=== PATIENT | female | born 1955 | race Two or more races ===

== ENCOUNTER 2017-06-27 08:01 | Day surgery (SDC) | payer MEDICAID ==
[2017-06-27] MEDS ORDERED: FAMOTIDINE 20 MG/NACL 50 ML IV ONE (08:03)
[2017-06-27] MEDS ORDERED: ASPIRIN EC 325 MG TAB PO ONE (08:03)
[2017-06-27] MEDS ORDERED: methylPREDNISolone SOD SUCC 125 MG/2 ML VIAL IVP ONE (08:03)
[2017-06-27] MEDS ORDERED: NS 1,000 ML IV ONE (08:03)
[2017-06-27] MEDS ORDERED: DIAZEPAM 5 MG TAB PO ONE (08:03)
[2017-06-27] MEDS ORDERED: FAMOTIDINE 20 MG/NACL/50 ML BAG IV ONE (08:35)
[2017-06-27] MEDS ORDERED: methylPREDNISolone SOD SUCC 125 MG/2 ML VIAL ONE (08:35)
[2017-06-27] MEDS ORDERED: CLOPIDOGREL BISULFATE 75 MG TAB ONE (08:35)
[2017-06-27 08:54] LABS: % IMMATURE GRANULYOCYTES 0.2 % (0.0-1.1); ABSOLUTE IMMATURE GRANULOCYTES 0.01 10^3/uL (0.00-0.10); ADD DIFF? NO; ADD MORPH? NO; ADD SCAN? NO; ATYPICAL LYMPHOCYTE FLAG 10 (0-99); FRAGMENT RBC FLAG 0 (0-99); HEMATOCRIT 42.1 % (38.0-47.0); LEFT SHIFT FLG 0 (0-99); LIPEMIA HEMOLYSIS FLAG 80 (0-99); MEAN CELL HEMOGLOBIN 30.4 pg (27.9-34.1); MEAN CELL HEMOGLOBIN CONCENTR. 33.3 g/dL (32.4-36.7); MEAN CELL VOLUME 91.3 fL (81.5-99.8); MEAN PLATELET VOLUME 10.2 fL (8.7-11.7); PLATELET CLUMPS FLAG 0 (0-99); PLATELET COUNT 176 10^3/uL (150-400); RED BLOOD CELL COUNT 4.61 10^6/uL (4.18-5.33); RED CELL DISTRIBUTION WIDTH 13.7 % (11.5-15.2)
[2017-06-27] MEDS ORDERED: fentaNYL 100 MCG/2 ML INJ ONE (08:58)
[2017-06-27] MEDS ORDERED: LIDOCAINE 1% 300 MG/30 ML SDV ONE (08:58)
--- NOTE | 2017-06-27 08:58 | CPEKG ---
Heart Rate: 67 RR Interval: 896 P-R Interval: 172 QRSD Interval: 78 QT Interval: 420 QTC Interval: 444 P Dupont: 72 QRS Dupont: -16 T Wave Dupont: 46 EKG Severity - BORDERLINE ECG - EKG Impression: SINUS RHYTHM EKG Impression: LEFT AXIS DEVIATION EKG Impression: LOW VOLTAGE THROUGHOUT EKG Impression: BORDERLINE T ABNORMALITIES, ANTERIOR LEADS , CONSIDER ANTERIOR ISCHEMIA. Electronically Signed By: Dilip Foss 30-Jun-2017 05:27:02
[2017-06-27] MEDS ORDERED: MIDAZOLAM 2 MG/2 ML VIAL ONE (08:59)
[2017-06-27] MEDS ORDERED: IOPAMIDOL (ISOVUE-370) 150 ML BTL IV ONE (08:59)
[2017-06-27] MEDS ORDERED: VERAPAMIL 5 MG/2 ML VIAL ONE (08:59)
[2017-06-27] MEDS ORDERED: HEPARIN 10,000 UNIT/10 ML MDV ONE (08:59)
[2017-06-27 09:07] LABS: INR 0.91 (0.83-1.16); PROTIME(PATIENT) 12.2 SEC (12.0-15.0)
[2017-06-27 09:11] LABS: ANION GAP 6 mEq/L (8-16); CALCIUM 9.4 mg/dL (8.5-10.4); CARBON DIOXIDE 24 mEq/l (22-31); CHLORIDE 105 mEq/L (97-110); CHOLESTEROL 142 mg/dL (140-220); CREATININE 0.7 mg/dL (0.6-1.0); GLOMERULAR FILTRATION RATE > 60; GLUCOSE 130 mg/dL (70-100); MAGNESIUM 2.2 mg/dL (1.6-2.3); POTASSIUM 4.6 mEq/L (3.5-5.2); SODIUM 135 mEq/L (134-144); TRIGLYCERIDE 167 mg/dL (35-135); VERY LOW DENSITY LIPOPROTEINS 33 mg/dL (8-25)
[2017-06-27 09:14] LABS: CHOLESTEROL/HDL RATIO 3.16 RATIO (1.00-4.44); HIGH DENSITY LIPOPROTEIN 45 mg/dL (40-85); LDL/HDL RATIO 1.42 RATIO (1.00-3.22); LOW DENSITY LIPOPROTEIN 64 mg/dL (80-100); NON-HIGH DENSITY LIPOPROTEIN 97 mg/dL (90-129)
[2017-06-27] MEDS ORDERED: ADENOSINE 90 MG/30 ML VIAL IV ONE (10:03)
[2017-06-27] MEDS ORDERED: NITROGLYCERIN 0.4 MG BTL SL PRN (11:25)
[2017-06-27] MEDS ORDERED: ATROPINE SULFATE 1 MG/10 ML SYR IVP PRN (11:25)
--- NOTE | 2017-06-27 11:32 | PDDXCAT ---
Diagnostic Cath Note - . Date: 06/27/17 Family Literacy Coordinator: Gustavo Indication: CCC Class III and IV angina on medical treatment - Procedure Access: right wrist Procedure: left heart catheterization, coronary angiography, left ventriculogram - Materials Left Heart Cath size: 5F Left Heart Cath materials: pigtail, other ([email or web address]) - Findings-Left Heart Catheterization LM: Short and unobstructed. LAD: LAD stent is patent. 50% distal stenosis LCX: Unobstructed RCA: 30-40% Mid RCA stenosis. EDP: 12 mmHg LVEF: 65 Wall motion: normal Complications: none Estimated blood loss: <50ml Closure method: TR Band Assessment: 1. Indeterminate mid lad stenosis with patent stent. 2. Normal LV function with normal filling pressures. Plan: FFR of the LAD Intervention: After reviewing diagnostic angiograms, it was elected to proceed with FFR of the LAD. She was anticoagulated with heparin. Using a 5 greek [id number] guiding catheter the LM was selectively intubated. A FFR wire was passed down the LAD and she was infused adenosine per protocol. Initial FFR was .92. On angiogram, however, we noticed the wire had become dislodged. It was replaced in the LAD and the infusion was re-done. FFR was 0.82. The Flow Wire was withdrawn. Conclusion 50% mid LAD without hemodynamic significance, FFR 0.82. Continue medical therapy.
== END 2017-06-27 16:00 | disposition home or self-care (01) ==
LOC: FCATH 08:01
PROVIDERS: ATTEND Internal Medicine Interventional Cardiology
DX: I25.10 Atherosclerotic heart disease of native coronary artery without angina pectoris (principal); E11.9 Type 2 diabetes mellitus without complications; E78.5 Hyperlipidemia, unspecified; I10 Essential (primary) hypertension; Z72.0 Tobacco use
CPT/HCPCS: 93005; 93458; 93571; C1769; C1887; J0153; J1200; J1644; J2250; J3010; Q9967

== ENCOUNTER → 2019-02-15 | Outpatient (CLI) | payer MEDICAID | LOC: CIMAGING 07:51 | PROVIDERS: ATTEND Internal Medicine | DX: Z12.31 Encounter for screening mammogram for malignant neoplasm of breast (principal) ==